=== PATIENT | female | born 1950 | race Caucasian/White ===

== ENCOUNTER 2018-04-25 14:24 | Outpatient (CLI) | payer BC ==
[~2018-04-25 14:24] MED LIST: Gadobenate Dimeglumine 529 MG/1 ML (20ML VIAL) ONE
--- NOTE | 2018-04-25 17:33 | MRI ---
PRE AND POSTCONTRAST ENHANCED MRI IMAGES OF BRAIN 04/25/18 Comparison made to a previous MRI from the cervical spine from 03/21/18. Multiplanar and multisequence pre and post contrast enhanced MRI images of the brain demonstrate a 12 .8 x 16.7 x 22.6 mm area of dural based enhancement just to the posterior left aspect of the atlanto- occipital junction. This dural based lesion is most compatible with a hemangioma. It compresses the u pper cervical cord anteriorly and toward the right effacing the posterior aspect. The lesion abuts th e left vertebral artery where it enters the subarachnoid space. No evidence of intracranial masses or lesions seen otherwise. No evidence of hydrocephalus seen. No o bvious evidence of spinal cord ischemia is seen. No evidence of upper cord edema seen. No other significant intracranial lesions or abnormalities noted. Normal flow voids seen in the major intracranial vessels. IMPRESSION: Left cervico-occipital junction dural based enhancing lesion most compatible with a hemangioma. This lesion compresses the spinal cord as well as the left vertebral artery. POS: [facility]
== END 2018-04-25 14:25 | disposition home or self-care (01) ==
LOC: SCSMRI 14:24
PROVIDERS: ATTEND Neurological Surgery
DX: D49.6 Neoplasm of unspecified behavior of brain (principal); G93.9 Disorder of brain, unspecified
CPT/HCPCS: 70553; 82565

== ENCOUNTER 2018-05-12 08:50 | Outpatient (CLI) | payer BC | END 2018-05-12 08:51 | disposition home or self-care (01) | LOC: BICMAMMO 08:50 | PROVIDERS: ATTEND Family Medicine | DX: Z12.31 Encounter for screening mammogram for malignant neoplasm of breast (principal); R92.1 Mammographic calcification found on diagnostic imaging of breast | CPT/HCPCS: 77063; 77067 ==

== ENCOUNTER 2018-05-21 13:21 | Outpatient (CLI) | payer BC | END 2018-05-21 13:22 | disposition home or self-care (01) | LOC: BICMAMMO 13:21 | PROVIDERS: ATTEND Family Medicine | DX: R92.1 Mammographic calcification found on diagnostic imaging of breast (principal) | CPT/HCPCS: G0279 ==

== ENCOUNTER → 2018-06-10 | Day surgery (SDC) | payer BC ==
--- NOTE | 2018-06-10 10:56 | OP ---
DATE OF PROCEDURE: 06/10/2018 PREOPERATIVE DIAGNOSIS: Right breast microcalcifications. POSTOPERATIVE DIAGNOSIS: Right breast microcalcifications. OPERATION PERFORMED: Right breast stereotactic biopsy with clip placement. SURGEON: Sumit Solis M.D. RADIOLOGIST: Dr. Maranda Echevarria ANESTHESIA: 1% lidocaine with epinephrine (buffered). INDICATIONS: The patient is a 67-year-old white female. Recent mammography revealed a small cluster of microcalcifications in the outer right breast. She is taken to the stereotactic imaging suite fo r sterotactic biopsy at this time. DESCRIPTION OF PROCEDURE: Informed consent was obtained. The patient was placed in the prone positi on on the stereotactic imaging table. Right breast was placed into a compression and imaged with [facility] mography. The calcifications were localized per Dr. Echevarria. The appropriate area of the breast was p repped with Betadine and locally anesthetized with 1% lidocaine with epinephrine. A small incision w as created and needle was advanced into the breast. Pre- and post fire images were obtained. The ne edle was found to be in appropriate location. A series of 6 circumferential suction assisted biopsie s were obtained using the biopsy system. The specimen were imaged and found to contain microcalcific ations. A marking clip was advanced into the breast and deployed in the usual fashion. This was fou nd to be present outside of the needle at appropriate location. The needle was withdrawn. Pressure was held on the breast. The incision was closed with Steri-Strips. Post-procedure mammogram was obt ained after the procedure. There was no discomfort and no blood loss during the procedure. She will follow up in my office in 3 days to discuss pathology and check incision.
--- NOTE | 2018-06-10 13:40 | MMO ---
RIGHT BREAST STEREOTACTIC BIOPSY: History: Right breast calcification. Comparison: None. FINDINGS: Imaging guidance was provided for Dr. Solis who performed the stereotactic biopsy. Refer to his kim elliott report for further detail. The calcifications were identified in the right breast. Post procedu re images demonstrate the biopsy clip to be present. [employer] radiograph demonstrates calcifications. IMPRESSION: Imaging guidance for right breast stereotactic biopsy was performed. POS: [facility]
--- NOTE | 2018-06-10 18:05 | MMO ---
2 VIEWS RIGHT BREAST: Date: 06/10/18 HISTORY: Status post right stereotactic biopsy. FINDINGS: Expected postoperative changes in the upper outer quadrant of the right breast. There is an associate d biopsy clip. On the CC projection, tip is appropriately located. On the MLO projection, the clip is slightly inferior in location. IMPRESSION: Status post right breast stereotactic biopsy. POS: [facility]
--- NOTE | 2018-06-10 18:05 | MMO ---
SPECIMEN RADIOGRAPH: 06/10/18 Calcifications are present. IMPRESSION: Calcifications are present in the specimen radiograph. POS: [facility]
== END ==
LOC: MAMMO 06:41
PROVIDERS: ATTEND Specialist
PROC: 0HBT3ZX Excision of Right Breast, Percutaneous Approach, Diagnostic (ICD-10-PCS; principal; 2018-06-10)
DX: N60.11 Diffuse cystic mastopathy of right breast (principal); R92.0 Mammographic microcalcification found on diagnostic imaging of breast; I10 Essential (primary) hypertension; E03.9 Hypothyroidism, unspecified; Z79.52 Long term (current) use of systemic steroids; Z79.899 Other long term (current) drug therapy
CPT/HCPCS: 19081; 76098; 88305

== ENCOUNTER 2019-05-13 09:47 | Outpatient (CLI) | payer MEDICARE, BC ==
--- NOTE | 2019-05-13 10:43 | MMO ---
Bilateral MAMMO Bilat Screen [facility]. CLINICAL HISTORY: Patient is 68 years old and is seen for screening. The patient has no family history of breast cancer. The patient has no personal history of cancer. The patient has a history of right Stereotatic Biopsy in May, - benign and left needle biopsy in 2001 - benign. VIEWS: The views performed were: bilateral craniocaudal with tomosynthesis and bilateral mediolateral oblique with tomosynthesis. FILMS COMPARED: The present examination has been compared to prior imaging studies performed at [facility] on 05/12/2018 and 05/21/2018, and at Outside Location on 05/08/2016 and 05/09/2017. MAMMOGRAM FINDINGS: There are scattered fibroglandular densities. Finding 1: There are stable benign appearing calcifications seen in both breasts. Finding 2: There are stable focal asymmetries with obscured margins seen in both breasts. Finding 3: There are stable biopsy clips seen in both breasts. There are no suspicious masses, suspicious calcifications, or new areas of architectural distortion. IMPRESSION: THERE IS NO MAMMOGRAPHIC EVIDENCE OF MALIGNANCY. A ROUTINE FOLLOW-UP MAMMOGRAM IN 1 YEAR IS RECOMMENDED. THE RESULTS OF THIS EXAM WERE SENT TO THE PATIENT. ACR BI-RADS Category 2 - Benign finding MAMMOGRAPHY NOTE: 1. A negative mammogram report should not delay a biopsy if a dominant of clinically suspicious mass is present. 2. Approximately 10% to 15% of breast cancers are not detected by mammography. 3. Adenosis and dense breasts may obscure an underlying neoplasm.
== END 2019-05-13 09:48 | disposition home or self-care (01) ==
LOC: BICMAMMO 09:47
PROVIDERS: ATTEND Family Medicine
DX: Z12.31 Encounter for screening mammogram for malignant neoplasm of breast (principal); Z91.89 Other specified personal risk factors, not elsewhere classified
CPT/HCPCS: 77063; 77067

== ENCOUNTER 2020-04-20 15:00 | Outpatient (CLI) | payer MEDICARE, BC | END 2020-04-20 15:01 | disposition home or self-care (01) | LOC: DTY/OP 15:00 | PROVIDERS: ATTEND Family Medicine | DX: I10 Essential (primary) hypertension (principal); E03.9 Hypothyroidism, unspecified; E11.65 Type 2 diabetes mellitus with hyperglycemia; E78.2 Mixed hyperlipidemia; F51.01 Primary insomnia | CPT/HCPCS: 97802 ==

== ENCOUNTER 2020-04-22 06:28 | Outpatient (CLI) | payer MEDICARE, BC, OTHER ==
[2020-04-22 11:06] LABS: #Eosinphils 0.1 thou/uL (0.0-0.7); #Monocytes 0.5 thou/uL (0.11-0.59); #Neutrophils 2.1 thou/uL (1.40-6.50); %Basophils 0.7 % (0.0-1.0); %Eosinophils 2.4 % (0.0-10.0); %Lymphocytes 26.8 % (21.0-51.0); %Monocytes 12.9 % (0.0-10.0); %Neutrophils 57.3 % (42.0-75.0); Hemoglobin 14.5 g/dL (12.0-16.0); Mean Corpuscular HGB CONC 33.9 g/dL (32.0-36.0); Mean Corpuscular Hemoglobin 32.1 pg (27.0-31.0); Mean Corpuscular Volume 94.7 fL (78.0-98.0); Mean Platelet Volume 9.2 fL (7.4-10.4); Platelet Count 216 thou/uL (130-400); RBC Distribution Width 12.5 % (11.5-14.5); Red Blood Cell (RBC) Count 4.51 mill/uL (4.20-5.40); White Blood Cell (WBC) Count 3.7 thou/uL (4.8-10.8)
[2020-04-22 11:53] LABS: Bacteria/HPF None Seen HPF (None Seen); Bilirubin Negative (Negative); Blood, Urine Negative (Negative); Clarity Clear (Clear); Glucose, Urine (Dipstick) Normal (Negative); Leukocyte Negative Leu/uL (Negative); Nitrite Negative (Negative); Protein, Urine (Dipstick) Negative (Neg-Trace); RBC/HPF 0-3 HPF (0-3); Squamous Epithelial None Seen HPF (0-3); Urobilinogen Normal mg/dL (Less than 2); WBC/HPF 0-3 HPF (0-3)
[2020-04-22 12:12] LABS: Anion Gap 16 mmol/L (10-20); BUN (Urea Nitrogen) 9 mg/dL (9.8-20.1); Calc. Creatinine Clearance 0 mL/min (70-130); Calcium 9.1 mg/dL (7.8-10.44); Carbon Dioxide 23 mmol/L (23-31); Chloride 103 mmol/L (98-107); Estimated GFR-MDRD 68; Glucose 156 mg/dL (80-115); Potassium 4.2 mmol/L (3.5-5.1); Sodium 138 mmol/L (136-145)
[2020-04-23 12:14] LABS: SARS-CoV-2 MS2 Positive; SARS-CoV-2 N Gene Negative; SARS-CoV-2 S Gene Negative; SARS-CoV-2 orf1ab Negative
--- NOTE | 2020-04-25 11:43 | EKG ---
Test Reason : Blood Pressure : / mmHG Vent. Rate : 066 BPM Atrial Rate : 066 BPM P-R Int : 166 ms QRS Dur : 088 ms QT Int : 402 ms P-R-T Axes : 073 073 057 degrees QTc Int : 421 ms Normal sinus rhythm Normal ECG Confirmed by DANYA RAYMOND ([id number]) on 04/25/2020 11:43:45 AM Referred By: KASHMIR Confirmed By:DANYA RAYMOND
== END 2020-04-22 06:29 | disposition home or self-care (01) ==
LOC: LABBT 06:28
PROVIDERS: ATTEND Orthopaedic Surgery Hand Surgery
DX: Z01.818 Encounter for other preprocedural examination (principal); Z11.59 Encounter for screening for other viral diseases; M18.12 Unilateral primary osteoarthritis of first carpometacarpal joint, left hand
CPT/HCPCS: 80048; 81001; 85025; 87081; 93005; U0003; 87635; 93010

== ENCOUNTER 2020-04-26 06:08 | Day surgery (SDC) | payer MEDICARE, BC ==
[2020-04-21 09:57] VITALS: BMI 30.4
[2020-04-26] MEDS ORDERED: Midazolam HCl 2 mg/2 ml Vial ONE ×2 (07:49→08:34)
[2020-04-26] MEDS ORDERED: Fentanyl 100 MCG/2 ML VIAL ONE ×2 (07:49→08:34)
[2020-04-26] MEDS ORDERED: Bacitracin Zinc Ointment 30 gm TUBE ONE (08:33)
[2020-04-26] MEDS ORDERED: Bupivacaine PF 0.5% 30 ML VIAL ONE (08:33)
[2020-04-26] MEDS ORDERED: EPHEDRINE 25 MG/5 ML SYRINGE ONE (11:46)
[2020-04-26] MEDS ORDERED: Bupivacaine HCl 0.5%/Epinephrine 1:200,000/PF 30 ml Vial ONE (11:46)
[2020-04-26] MEDS ORDERED: Dexamethasone 20 MG/5 ML VIAL ONE (11:46)
[2020-04-26] MEDS ORDERED: PROPOFOL 200 MG/20 ML VIAL ONE (11:46)
[2020-04-26] MEDS ORDERED: Ketorolac Tromethamine 30 MG/ML VIAL ONE (12:40)
--- NOTE | 2020-04-26 13:54 | RAD ---
Radiograph left wrist 3 views: DATE: 04/26/2020 HISTORY: 69-year-old female with left thumb pain FINDINGS: A total of 5 small [id number] fluoroscopic spot images obtained with C-arm in the OR. Ongoing K wire placement across first MCP joint. Trapezium is visualized in some of the images, but n ot in one of the images where there are tissue retractors nearby. Transversely oriented pin across bases of first and second metacarpals. IMPRESSION: 1.) Resection of trapezium 2) arthrodesis pin across first metacarpophalangeal joint. 3) pin placement across bases of first and second metacarpals.
--- NOTE | 2020-04-28 13:17 | OP ---
DATE OF PROCEDURE: 04/26/2020 PREOPERATIVE DIAGNOSES: 1. Left thumb carpometacarpal joint osteoarthritis. 2. Left thumb metacarpophalangeal volar capsule laxity. POSTOPERATIVE DIAGNOSES: 1. Left thumb carpometacarpal joint osteoarthritis. 2. Left thumb metacarpophalangeal volar capsule laxity with very lax volar capsule. 3. Three osteophytes and ossicles almost 4 mm each that were around the base of the thumb and trapezium, intact FCR throughout. PROCEDURES PERFORMED: 1. Flexor carpi radialis transfer tendon. 2. Left thumb carpometacarpal joint ligament placement tendon position. 3. Complete trapeziectomy, left thumb. 4. Left thumb metacarpophalangeal joint capsulodesis with pinning. 5. C-arm supervision multiple times and sites. 6. Short-arm cast application. 7. Removal of trapezium. TOTAL TOURNIQUET TIME: 121 minutes under block applied by Anesthesia indwelling for postoperative prolonged pain relief. ESTIMATED BLOOD LOSS: 20 mL. INDICATIONS: The patient with markedly degenerated, subluxed, sclerotic stage IV carpometacarpal joint osteoarthritis with over a 55- to 60-degree hyperextension deformity of the metacarpophalangeal joint that must be corrected as well. DESCRIPTION OF PROCEDURE: After successful anesthesia listed above, the limb was prepped and draped. We outlined a zigzag incision approximately 2.5 cm centered on the metacarpophalangeal joint in the volar aspect of the thumb as well as a J-shaped incision centered over the carpometacarpal joint and two 2 cm incisions over the flexor carpi radialis, each one-third of the way between the scaphoid and the flexor carpi radialis musculotendinous origin. The patient then had the metacarpophalangeal joint incision entered, we dissected down to visualize the radial and ulnar nerve branches, saw the A1 pablito and released it. We then retracted the tendon and the radial branch radially and the ulnar branch ulnarly. We made a V-shaped incision in the surface of the volar capsule which was markedly thinned, especially proximally. It was enough to suture the repair. We then began 4 sutures with double-armed Prolene 4-0 [id number], put them in place, brought the C-arm to the field and then placed a K-wire appropriately in the joint in frontal-sagittal plane at 30 degrees of flexion. We then tied the sutures with appropriate tension, cut them, and we had performed the capsulodesis. We closed the incision with interrupted 4-0 nylon in a simple pattern. We then were able to now approach the CMC joint. The J-shaped incision was entered. We dissected down, protecting the radial nerve branches and retracted them appropriately. We then saw the junction of the thenar muscles and the fascia, and leaving approximately 3 mm rim of fascia, we released down to the point where we were just past the tendinous insertions. Between the abductor and the extensor tendon, we entered the capsule. We tagged the capsule with a heavy 2-0 Prolene for later closure including a portion that had attachment with the thenar muscle fascia. We then placed a K-wire into the trapezium, threaded 0.062 approximately two-thirds depth and then subfrontal sagittal plane confirmed we had not placed it in the trapezoid as well. We then dissected 360 degrees around the trapezium to protect the radial artery radially and then visualized the flexor carpi radialis, moving it from the capsule gently scaphotrapezium articulation, released the capsule, and then elevated the trapezium out doing a total trapeziectomy. There were four ossicles and three large osteophytes around this joint on both sides, which had to be removed. We then freed the posterior capsule, and posteriorly and ulnarly, we placed a very heavy 3-0 Prolene in the capsule just at the flexor carpi radialis insertion on the index finger. We now rotated the thumb until the nailbed was parallel to the palm, and from here, we visualized in the sagittal plane the center above the thumb metacarpal 1.5 cm proximal to the articular surface and then passed a guidewire for a 2.7 drill bit at the junction of the chondral and metaphyseal bone as far as height and then in the center of the metaphysis of the metacarpal on both sides of the drill. We then slowly 3.5 mm. We irrigated and now proceeded to find the harvested flexor carpi radialis tendon. Both incisions were entered, first the most distal one, identified the tendon, freed it distally and proximally and then used a Crile to pull and help identify the musculotendinous junction. Once we found this, we elevated the muscle off the tendon, released it, brought into the first harvested incision and removed all the muscle. We then placed a running 4-0 Vicryl undyed on this tendon, so it could be passed through the hole. We brought it into the wrist, and passed it through the hole in the metacarpal base. At this point, we then pinned the metacarpal base using a K-wire approximately 5 mm distal to the lateral edge of the opening where the tendon had been passed from the metacarpal of the thumb into the metacarpal index finger appropriate height and then appropriate widening of the first webspace and adjacent base of the first and second metacarpals. We then passed the tendon underneath the abductor, sutured it to the wall of the metacarpal x2 into the abductor x2 with 4-0 Prolene. We then sutured it to the very deep capsule, placing it under the center of the base of the thumb metacarpal. We used the Irving needles and the heavy 3-0 Prolenes to create the anchovy effect and then sutured this deep into the recess created by the trapeziectomy. We released the tourniquet, and we obtained hemostasis. We closed the previous intact capsule back to itself, brought the remaining portion of the thenar fascia back to the rim we had connected and small portion to the abductor insertion. We then checked hemostasis again. It was adequate. We closed the epidermis with a running 4-0 Monocryl and the dermis with 4-0 nylon interrupted fashion in the primary J-shaped hockey incision on the thumb CMC. We used the same suture pattern to close the skin in the forearm for the harvest sites. We then had a bulky dressing applied with the patient having excellent circulation, capillary refill of 1 second, a thumb spica splint was applied on top with only the tip of the thumb visible. The patient left the operating room without evidence of anesthetic or operative complication. Job ID: [id number]
== END 2020-04-26 15:20 | disposition home or self-care (01) ==
LOC: SDC 06:08
PROVIDERS: ATTEND Orthopaedic Surgery Hand Surgery
PROC: 0RGV04Z Fusion of Left Metacarpophalangeal Joint with Internal Fixation Device, Open Approach (ICD-10-PCS; principal; 2020-04-26)
PROC: 0LX80ZZ Transfer Left Hand Tendon, Open Approach (ICD-10-PCS; 2020-04-26)
PROC: 0LU807Z Supplement Left Hand Tendon with Autologous Tissue Substitute, Open Approach (ICD-10-PCS; 2020-04-26)
PROC: 0RQT0ZZ Repair Left Carpometacarpal Joint, Open Approach (ICD-10-PCS; 2020-04-26)
PROC: 3E0T3BZ Introduction of Anesthetic Agent into Peripheral Nerves and Plexi, Percutaneous Approach (ICD-10-PCS; 2020-04-26)
DX: M18.0 Bilateral primary osteoarthritis of first carpometacarpal joints (principal); M25.242 Flail joint, left hand; G89.18 Other acute postprocedural pain; G56.03 Carpal tunnel syndrome, bilateral upper limbs; M65.331 Trigger finger, right middle finger; M65.332 Trigger finger, left middle finger; E03.9 Hypothyroidism, unspecified; I10 Essential (primary) hypertension; J30.2 Other seasonal allergic rhinitis; L71.9 Rosacea, unspecified; Z79.51 Long term (current) use of inhaled steroids; Z79.84 Long term (current) use of oral hypoglycemic drugs; Z79.899 Other long term (current) drug therapy; Z88.1 Allergy status to other antibiotic agents; Z91.013 Allergy to seafood; Z96.652 Presence of left artificial knee joint; Z98.890 Other specified postprocedural states
CPT/HCPCS: 76000; J0670; J0690; J1100; J1885; J2250; J2704; J3010; S0020

== ENCOUNTER 2020-05-16 08:35 | Outpatient (CLI) | payer MEDICARE, BC ==
--- NOTE | 2020-05-16 09:56 | MMO ---
Bilateral MAMMO Bilat Screen [facility]. CLINICAL HISTORY: Patient is 69 years old and is seen for screening. The patient has no family history of breast cancer. The patient has no personal history of cancer. The patient has a history of right Stereotatic Biopsy in May, - benign and left needle biopsy in 2001 - benign. VIEWS: The views performed were: bilateral craniocaudal with tomosynthesis and bilateral mediolateral oblique with tomosynthesis. FILMS COMPARED: The present examination has been compared to prior imaging studies performed at [facility] on 05/12/2018, 05/21/2018 and 05/13/2019, and at Outside Location on 05/09/2017. This study has been interpreted with the assistance of computer-aided detection. MAMMOGRAM FINDINGS: There are scattered fibroglandular densities. Finding 1: There are stable benign appearing calcifications seen in both breasts. Finding 2: There is a stable focal asymmetry seen in the right breast. Finding 3: There is a stable biopsy clip seen in the right breast. There are no suspicious masses, suspicious calcifications, or new areas of architectural distortion. IMPRESSION: THERE IS NO MAMMOGRAPHIC EVIDENCE OF MALIGNANCY. A ROUTINE FOLLOW-UP MAMMOGRAM IN 1 YEAR IS RECOMMENDED. THE RESULTS OF THIS EXAM WERE SENT TO THE PATIENT. ACR BI-RADS Category 2 - Benign finding MAMMOGRAPHY NOTE: 1. A negative mammogram report should not delay a biopsy if a dominant of clinically suspicious mass is present. 2. Approximately 10% to 15% of breast cancers are not detected by mammography. 3. Adenosis and dense breasts may obscure an underlying neoplasm. Reported by: ELAYNE SMALLS MD Electonically Signed: [id number]
--- NOTE | 2020-05-16 11:10 | BD ---
BONE DENSITOMETRY USING DEXA: Date: 05/16/2020 HISTORY: Postmenopausal screening for osteoporosis. FINDINGS: Lumbar Spine: BMD (g/cm2) L1 0.956 T-Score: -0.3 Z-Score: 1.4 L2 1.138 T-Score: 1.0 Z-Score: 2.9 L3 1.455 T-Score: 3.4 Z-Score: 5.4 L4 1.298 T-Score: -2.2 Z-Score: 4.2 L1-L4 1.209 T-Score: 1.5 Z-Score: 3.4 Femoral Neck: 0.744 T-Score: -0.9 Z-Score: 0.7 Total Femur: 0.997 T-Score: 0.5 Z-Score: 1.8 There is an interval reduction of 3.8% in the bone mineral density of the lumbar spine and an improve ment of 1.7% in the bone mineral density of the proximal femurs since 06/03/2017. IMPRESSION: Normal bone mineral density. POS: [facility]
== END 2020-05-16 08:36 | disposition home or self-care (01) ==
LOC: BICMAMMO 08:35
PROVIDERS: ATTEND Family Medicine
DX: Z12.31 Encounter for screening mammogram for malignant neoplasm of breast (principal); Z13.820 Encounter for screening for osteoporosis; Z91.89 Other specified personal risk factors, not elsewhere classified
CPT/HCPCS: 77063; 77067; 77080

== ENCOUNTER 2021-05-19 08:45 | Outpatient (CLI) | payer MEDICARE, BC | END 2021-05-19 08:46 | disposition home or self-care (01) | LOC: BICMAMMO 08:45 | PROVIDERS: ATTEND Family Medicine | DX: Z12.31 Encounter for screening mammogram for malignant neoplasm of breast (principal); Z13.820 Encounter for screening for osteoporosis; Z78.0 Asymptomatic menopausal state | CPT/HCPCS: 77063; 77067; 77080 ==

== ENCOUNTER 2021-09-21 08:47 | Outpatient (CLI) | payer MEDICARE, BC ==
[2021-09-21 10:50] LABS: Prothrombin Time 10.9 sec (9.5-12.1)
[2021-09-21 17:21] LABS: SARS-CoV-2 PCR by NAA Not Detected (NotDetected)
== END 2021-09-21 08:48 | disposition home or self-care (01) ==
LOC: LABBT 08:47
PROVIDERS: ATTEND Orthopaedic Surgery
DX: Z01.812 Encounter for preprocedural laboratory examination (principal); M17.11 Unilateral primary osteoarthritis, right knee; Z20.822 Contact with and (suspected) exposure to COVID-19
CPT/HCPCS: 85610; 87081; U0003; U0005

== ENCOUNTER 2021-09-21 09:00 | Inpatient (IN) | payer MEDICARE, BC ==
[2021-09-25 12:20] VITALS: BMI 28.5
[2021-09-26] MEDS ORDERED: Tranexamic Acid 1,000 MG/10 ML VIAL ONE ×2 (06:07→09:25)
[2021-09-26] MEDS ORDERED: ceFAZolin Sodium (SDC) 2 GM/100 ML BAG ONE (06:07)
[2021-09-26] MEDS ORDERED: Sodium Chloride 0.9% 100 ML ONE (06:08)
[2021-09-26] MEDS ORDERED: Vancomycin 1.5 GRAM/300 ML BAG 1.5 GM in Premix Bag 1 BAG IVPB SCH (06:15)
[2021-09-26] MEDS ORDERED: Fentanyl 100 MCG/2 ML VIAL ONE ×2 (06:42→09:33)
[2021-09-26] MEDS ORDERED: Midazolam HCl 2 mg/2 ml Vial ONE (06:42)
[2021-09-26] MEDS ORDERED: Bupivacaine 0.25% HCL 30 ML VIAL ONE ×2 (06:52→07:59)
[2021-09-26] MEDS ORDERED: EPINEPHrine 1 MG/ML AMP ONE (06:52)
[2021-09-26] MEDS ORDERED: Ondansetron PF 4 MG/2 ML Vial ONE (07:08)
[2021-09-26] MEDS ORDERED: Bupivacaine HCl 0.5%/Epinephrine 1:200,000/PF 30 ml Vial ONE (07:08)
[2021-09-26] MEDS ORDERED: PROPOFOL 200 MG/20 ML VIAL ONE (07:08)
[2021-09-26] MEDS ORDERED: Lidocaine 1% PF 5 ML VIAL ONE (07:08)
[2021-09-26] MEDS ORDERED: ePHEDrine 50 MG/ML VIAL ONE (07:08)
[2021-09-26] MEDS ORDERED: Fentanyl 100 MCG/2 ML VIAL SLOW IVP PRN ×3 (07:27→09:50)
[2021-09-26] MEDS ORDERED: Zolpidem Tartrate 5 MG TAB PO PRN ×3 (07:30→12:00)
[2021-09-26] MEDS ORDERED: traMADol HCl 50 MG TAB PO PRN ×3 (07:30→09:50)
[2021-09-26] MEDS ORDERED: Promethazine HCl 25 MG/ML VIAL IM PRN ×3 (07:30→09:50)
[2021-09-26] MEDS ORDERED: HYDROcodone/Acetaminophen 10/325 mg Tablet PO PRN ×4 (07:30→09:50)
[2021-09-26] MEDS ORDERED: Ondansetron PF 4 MG/2 ML Vial IVP PRN ×2 (07:30→09:50)
[2021-09-26] MEDS ORDERED: Ropivacaine 0.2% 550 ML 550 ML NERVE BLCK SCH (07:30)
[2021-09-26] MEDS ORDERED: Multivitamin W/ Minerals 1 TAB PO SCH (09:00)
[2021-09-26] MEDS ORDERED: Promethazine HCl 25 MG/ML VIAL IVPB PRN (09:20)
[2021-09-26] MEDS ORDERED: Ondansetron HCl/PF 4 MG/2 ML Vial IVP PRN (09:20)
[2021-09-26] MEDS ORDERED: diphenhydrAMINE 25 MG CAP PO PRN (09:50)
[2021-09-26] MEDS ORDERED: Ketorolac Tromethamine 30 MG/ML VIAL IVP PRN (09:50)
[2021-09-26] MEDS ORDERED: Ketorolac Tromethamine 30 MG/ML VIAL ONE (09:52)
[2021-09-26] MEDS: Senokot S 8.6-50 MG TAB PO SCH ×2 (11:17→20:54)
[2021-09-26] MEDS: Aspirin 81 mg Enteric Coated Tablet PO SCH ×2 (11:17→20:55)
[2021-09-26] MEDS: Ferrous Gluconate 324 MG TAB PO SCH ×2 (11:17→20:55)
[2021-09-26] MEDS: Ketorolac Tromethamine 30 MG/ML VIAL IVP SCH ×2 (11:29→18:02)
[2021-09-26] MEDS: Sodium Chloride 0.9% 1,000 ML IV SCH (11:30)
[2021-09-26] MEDS ORDERED: Albuterol Sulfate 2.5 mg/3 ml Neb NEB PRN (11:55)
[2021-09-26] MEDS ORDERED: Loratadine 10 MG TAB PO PRN (11:59)
[2021-09-26] MEDS ORDERED: PAZEO EA EYE PRN (12:09)
[2021-09-26] MEDS ORDERED: Polyethylene Glycol OPTH DROP 15 ML BOT EA EYE PRN (12:13)
[2021-09-26] MEDS ORDERED: Dextrose 50% Abboject 50 ML SYRINGE SLOW IVP PRN (14:18)
[2021-09-26] MEDS ORDERED: Dextrose 5% in Water 1,000 ML IV PRN (14:18)
[2021-09-26] MEDS: CEFAZOLIN 2 GM in Sodium Chloride 0.9% 100 ML IVPB SCH ×2 (16:07→21:11)
[2021-09-26] MEDS: metFORMIN 500 MG TAB PO SCH (18:00)
[2021-09-26] MEDS ORDERED: Vancomycin HCl 1.5 GM in Sodium Chloride 0.9% 250 ML 300 ML IVPB SCH (18:00)
[2021-09-26] MEDS: Melatonin 3 MG TAB PO SCH (20:55)
[2021-09-27] MEDS: Ketorolac Tromethamine 30 MG/ML VIAL IVP SCH ×4 (00:52→17:01)
[2021-09-27] MEDS: Sodium Chloride 0.9% 1,000 ML IV SCH ×3 (05:42→17:02)
[2021-09-27] MEDS: Levothyroxine 150 MCG TAB PO SCH (06:12)
[2021-09-27 06:13] LABS: Hemoglobin 9.5 g/dL (12.0-16.0); Mean Corpuscular HGB CONC 33.9 g/dL (32.0-36.0); Mean Corpuscular Hemoglobin 31.9 pg (27.0-31.0); Mean Corpuscular Volume 94.2 fL (78.0-98.0); Platelet Count 192 thou/uL (130-400); RBC Distribution Width 12.5 % (11.5-14.5); Red Blood Cell (RBC) Count 2.97 mill/uL (4.20-5.40); White Blood Cell (WBC) Count 5.8 thou/uL (4.8-10.8)
[2021-09-27] MEDS ORDERED: Ferrous Sulfate 325 MG TAB PO SCH (08:00)
[2021-09-27] MEDS: Fish Oil 1,000 MG CAP PO SCH (08:30)
[2021-09-27] MEDS: Rosuvastatin 5 MG TAB PO SCH (08:30)
[2021-09-27] MEDS: Aspirin 81 mg Enteric Coated Tablet PO SCH ×2 (08:30→20:07)
[2021-09-27] MEDS: Triamterene/Hydrochlorothiazide 37.5 mg/25 mg Tablet PO SCH (08:30)
[2021-09-27] MEDS: Vit A,C & E/Lutein/Minerals Tablet PO SCH (08:31)
[2021-09-27] MEDS: metFORMIN 500 MG TAB PO SCH ×2 (08:32→16:59)
[2021-09-27] MEDS: Senokot S 8.6-50 MG TAB PO SCH ×2 (08:32→20:07)
[2021-09-27] MEDS: Venlafaxine XR 37.5 MG CAP PO SCH (08:33)
[2021-09-27] MEDS: Ferrous Gluconate 324 MG TAB PO SCH ×2 (08:33→20:08)
[2021-09-27] MEDS: Cholecalciferol 1,000 UNITS (25 MCG) TAB PO SCH (08:33)
[2021-09-27] MEDS: Lisinopril 20 MG TAB PO SCH (08:35)
[2021-09-27] MEDS: Acetaminophen 325 MG TAB PO PRN (08:52)
[2021-09-27] MEDS ORDERED: Fluticasone Propionate Nasal Spray 16 gm Bottle NASAL PRN (13:15)
[2021-09-27] MEDS ORDERED: Azelastine 137 MCG/Spray 30 ML NS PRN (13:18)
[2021-09-27] MEDS: Melatonin 3 MG TAB PO SCH (20:07)
[2021-09-28] MEDS: Ketorolac Tromethamine 30 MG/ML VIAL IVP SCH ×2 (00:41→06:26)
[2021-09-28] MEDS: Sodium Chloride 0.9% 1,000 ML IV SCH (01:17)
[2021-09-28 05:53] LABS: Hemoglobin 9.7 g/dL (12.0-16.0); Mean Corpuscular HGB CONC 32.7 g/dL (32.0-36.0); Mean Corpuscular Hemoglobin 30.7 pg (27.0-31.0); Mean Corpuscular Volume 93.9 fL (78.0-98.0); Mean Platelet Volume 7.8 fL (7.4-10.4); Platelet Count 200 thou/uL (130-400); RBC Distribution Width 12.7 % (11.5-14.5); Red Blood Cell (RBC) Count 3.16 mill/uL (4.20-5.40); White Blood Cell (WBC) Count 6.3 thou/uL (4.8-10.8)
[2021-09-28] MEDS: Levothyroxine 150 MCG TAB PO SCH (06:27)
[2021-09-28] MEDS: Rosuvastatin 5 MG TAB PO SCH (07:40)
[2021-09-28] MEDS: Senokot S 8.6-50 MG TAB PO SCH (07:44)
[2021-09-28] MEDS: Aspirin 81 mg Enteric Coated Tablet PO SCH (07:44)
[2021-09-28] MEDS: Fish Oil 1,000 MG CAP PO SCH (07:44)
[2021-09-28] MEDS: metFORMIN 500 MG TAB PO SCH (07:44)
[2021-09-28] MEDS: Vit A,C & E/Lutein/Minerals Tablet PO SCH (07:45)
[2021-09-28] MEDS: Triamterene/Hydrochlorothiazide 37.5 mg/25 mg Tablet PO SCH (07:46)
[2021-09-28] MEDS: Lisinopril 20 MG TAB PO SCH (07:47)
[2021-09-28] MEDS: Cholecalciferol 1,000 UNITS (25 MCG) TAB PO SCH (07:47)
[2021-09-28] MEDS: Ferrous Gluconate 324 MG TAB PO SCH (07:47)
[2021-09-28] MEDS: Acetaminophen 325 MG TAB PO PRN (08:35)
[2021-09-28] MEDS: Venlafaxine XR 37.5 MG CAP PO SCH (11:29)
[2021-09-28 11:58] VITALS: BP 120/79; TEMP 98.5
== END 2021-09-28 12:26 | disposition home or self-care (01) | DRG 470 ==
LOC: SURG A 09-26 05:33 → EDSTATUS 09-26 09:00 → SURG B 09-26 10:37
PROVIDERS: ADMIT Orthopaedic Surgery; ATTEND Orthopaedic Surgery
PROC: 0SRC0J9 Replacement of Right Knee Joint with Synthetic Substitute, Cemented, Open Approach (ICD-10-PCS; principal; 2021-09-26)
DX: M17.11 Unilateral primary osteoarthritis, right knee (principal); E11.9 Type 2 diabetes mellitus without complications; I10 Essential (primary) hypertension; E03.9 Hypothyroidism, unspecified; E05.00 Thyrotoxicosis with diffuse goiter without thyrotoxic crisis or storm; E78.5 Hyperlipidemia, unspecified; J45.909 Unspecified asthma, uncomplicated; Z85.850 Personal history of malignant neoplasm of thyroid; Z88.1 Allergy status to other antibiotic agents; Z91.013 Allergy to seafood; Z79.899 Other long term (current) drug therapy; Z90.710 Acquired absence of both cervix and uterus
CPT/HCPCS: 36415; 36416; 85027; A4306; C1713; C1776; J0171; J0690; J1885; J2250; J2405; J2704; J2795; J3010; J3370; J3490; J7050; S0020

== ENCOUNTER 2021-11-02 14:29 | Outpatient (CLI) | payer MEDICARE, BC ==
[2021-11-02 15:32] LABS: #Eosinphils 0.3 10x3/uL (0.0-0.5); #Monocytes 0.6 10x3/uL (0.0-1.1); #Neutrophils 2.7 10x3/uL (1.5-8.4); %Basophils 0.6 % (0.0-2.0); %Eosinophils 5.6 % (0.0-6.0); %Lymphocytes 24.3 % (18.0-47.0); %Monocytes 13.4 % (0.0-10.0); %Neutrophils 55.7 % (40.0-75.0); Hemoglobin 11.5 g/dL (12.0-15.5); Mean Corpuscular HGB CONC 31.9 g/dL (32.0-36.0); Mean Corpuscular Hemoglobin 28.9 pg (27.0-33.0); Mean Corpuscular Volume 90.5 fl (81.6-98.3); Mean Platelet Volume 10.6 fl (7.4-10.4); Platelet Count 298 10x3/uL (150-450); RBC Distribution Width 13.4 % (11.5-14.5); Red Blood Cell (RBC) Count 3.98 10x6/uL (3.90-5.03); White Blood Cell (WBC) Count 4.8 10x3/uL (3.5-10.5)
[2021-11-02 15:47] LABS: Anion Gap 14 mmol/L (10-20); BUN (Urea Nitrogen) 16 mg/dL (9.8-20.1); Calc. Creatinine Clearance 0 mL/min (70-130); Calcium 9.4 mg/dL (7.8-10.44); Carbon Dioxide 26 mmol/L (23-31); Glucose 99 mg/dL (80-115); Potassium 4.3 mmol/L (3.5-5.1); Sodium 137 mmol/L (136-145)
[2021-11-02 15:55] LABS: Chloride 101 mmol/L (98-107)
[2021-11-03 17:10] LABS: SARS-CoV-2 PCR by NAA Not Detected (NotDetected)
== END 2021-11-02 14:30 | disposition home or self-care (01) ==
LOC: LABBT 14:29
PROVIDERS: ATTEND Orthopaedic Surgery Hand Surgery
DX: Z01.812 Encounter for preprocedural laboratory examination (principal); M65.332 Trigger finger, left middle finger; M65.331 Trigger finger, right middle finger; Z20.822 Contact with and (suspected) exposure to COVID-19
CPT/HCPCS: 80048; 85025; U0003; U0005

== ENCOUNTER 2021-11-07 05:31 | Day surgery (SDC) | payer MEDICARE, BC ==
[2021-11-01 13:01] VITALS: BMI 27.3
[2021-11-07] MEDS ORDERED: Neomycin-Polymyxin 1 ML AMP ONE (06:23)
[2021-11-07] MEDS ORDERED: Bupivacaine PF 0.5% 30 ML VIAL ONE (06:23)
[2021-11-07] MEDS ORDERED: Betamet Acet/Betamet Na Ph 30 MG/5 ML VIAL ONE (06:23)
[2021-11-07] MEDS ORDERED: Bacitracin Zinc Ointment 30 gm TUBE ONE (06:23)
[2021-11-07] MEDS ORDERED: ceFAZolin 2 GM/DEX 5% 100 ML BAG ONE (06:25)
[2021-11-07] MEDS ORDERED: Fentanyl 100 MCG/2 ML VIAL ONE (06:46)
[2021-11-07] MEDS ORDERED: Midazolam HCl 2 mg/2 ml Vial ONE (07:15)
[2021-11-07] MEDS ORDERED: ePHEDrine 50 MG/ML VIAL ONE (07:18)
[2021-11-07] MEDS ORDERED: Dexamethasone 20 MG/5 ML VIAL ONE (07:18)
[2021-11-07] MEDS ORDERED: Ketorolac Tromethamine 30 MG/ML VIAL ONE (07:18)
[2021-11-07] MEDS ORDERED: PROPOFOL 200 MG/20 ML VIAL ONE (07:18)
[2021-11-07] MEDS ORDERED: Lidocaine 1% PF 5 ML VIAL ONE (07:18)
[2021-11-07] MEDS ORDERED: Ondansetron PF 4 MG/2 ML Vial ONE (07:18)
== END 2021-11-07 09:38 | disposition home or self-care (01) ==
LOC: SDC 05:31
PROVIDERS: ATTEND Orthopaedic Surgery Hand Surgery
PROC: 0LN80ZZ Release Left Hand Tendon, Open Approach (ICD-10-PCS; principal; 2021-11-07)
PROC: 0LN70ZZ Release Right Hand Tendon, Open Approach (ICD-10-PCS; 2021-11-07)
DX: M65.331 Trigger finger, right middle finger (principal); M65.332 Trigger finger, left middle finger; M65.841 Other synovitis and tenosynovitis, right hand; M65.842 Other synovitis and tenosynovitis, left hand; Z79.84 Long term (current) use of oral hypoglycemic drugs; Z79.899 Other long term (current) drug therapy; Z88.1 Allergy status to other antibiotic agents; Z91.013 Allergy to seafood; Z96.651 Presence of right artificial knee joint
CPT/HCPCS: J0702; J1100; J1885; J2250; J2405; J2704; J3010; J3490; S0020

== ENCOUNTER 2022-02-22 13:28 | Day surgery (SDC) | payer MEDICARE, BC ==
[2022-02-19 10:06] VITALS: BMI 27.3
[2022-02-22] MEDS ORDERED: AFRIN NASAL MIST 15 ML BOT ONE ×2 (14:14→17:54)
[2022-02-22] MEDS ORDERED: Fentanyl 100 MCG/2 ML VIAL ONE (16:52)
[2022-02-22] MEDS ORDERED: Bacitracin Zinc Ointment 30 gm TUBE ONE (17:54)
[2022-02-22] MEDS ORDERED: EPINEPHrine 1 MG/ML AMP ONE (17:54)
[2022-02-22] MEDS ORDERED: Lidocaine 1% w/Epinephrine 1:100K 20 ML VIAL ONE (17:54)
[2022-02-22] MEDS ORDERED: methylPREDNISolone Acetate 40 mg/ml Vial ONE (17:59)
[2022-02-22] MEDS ORDERED: Dexamethasone 20 MG/5 ML VIAL ONE (18:09)
[2022-02-22] MEDS ORDERED: Glycopyrrolate 0.2 MG/ML 5 ML SYRINGE ONE (18:09)
[2022-02-22] MEDS ORDERED: PROPOFOL 200 MG/20 ML VIAL ONE (18:09)
[2022-02-22] MEDS ORDERED: Ondansetron PF 4 MG/2 ML Vial ONE (18:09)
[2022-02-22] MEDS ORDERED: Rocuronium Bromide 10 MG/ML (10ML VIAL) ONE (18:09)
== END 2022-02-22 20:05 | disposition home or self-care (01) ==
LOC: SDC 13:28
PROVIDERS: ATTEND Specialist
PROC: 09SM0ZZ Reposition Nasal Septum, Open Approach (ICD-10-PCS; principal; 2022-02-22)
PROC: 09SL8ZZ Reposition Nasal Turbinate, Via Natural or Artificial Opening Endoscopic (ICD-10-PCS; 2022-02-22)
PROC: 09BR8ZZ Excision of Left Maxillary Sinus, Via Natural or Artificial Opening Endoscopic (ICD-10-PCS; 2022-02-22)
PROC: 095K8ZZ Destruction of Nasal Mucosa and Soft Tissue, Via Natural or Artificial Opening Endoscopic (ICD-10-PCS; 2022-02-22)
DX: J32.0 Chronic maxillary sinusitis (principal); J34.2 Deviated nasal septum; J34.3 Hypertrophy of nasal turbinates; J30.0 Vasomotor rhinitis; E78.00 Pure hypercholesterolemia, unspecified; I10 Essential (primary) hypertension; K21.9 Gastro-esophageal reflux disease without esophagitis; E11.9 Type 2 diabetes mellitus without complications; Z79.84 Long term (current) use of oral hypoglycemic drugs; Z79.890 Hormone replacement therapy; Z79.899 Other long term (current) drug therapy; Z88.1 Allergy status to other antibiotic agents; Z91.013 Allergy to seafood
CPT/HCPCS: 30130; 30520; 31267; C9771; J0171; J1100; J2405; J2704; J2920; J3010

== ENCOUNTER 2022-05-28 13:17 | Outpatient (CLI) | payer MEDICARE, BC | END 2022-05-28 13:18 | disposition home or self-care (01) | LOC: BICMAMMO 13:17 | PROVIDERS: ATTEND Family Medicine | DX: Z12.31 Encounter for screening mammogram for malignant neoplasm of breast (principal) | CPT/HCPCS: 77063; 77067 ==

== ENCOUNTER 2022-09-28 16:53 | Emergency (ER) | payer MEDICARE, BC ==
[2022-09-28 17:57] LABS: #Eosinphils 0.2 thou/uL (0.0-0.7); #Lymphocytes 0.8 thou/uL (1.20-3.40); #Monocytes 0.7 thou/uL (0.11-0.59); %Lymphocytes 10.6 % (21.0-51.0); %Monocytes 9.1 % (0.0-10.0); %Neutrophils 78.3 % (42.0-75.0); Hemoglobin 11.9 g/dL (12.0-16.0); Mean Corpuscular HGB CONC 32.6 g/dL (32.0-36.0); Mean Corpuscular Volume 94.9 fl (78.0-98.0); Mean Platelet Volume 8.4 fL (7.4-10.4); Platelet Count 195 10x3/uL (130-400); RBC Distribution Width 12.8 % (11.5-14.5); Red Blood Cell (RBC) Count 3.83 mill/uL (4.20-5.40); White Blood Cell (WBC) Count 7.7 10x3/uL (4.8-10.8)
[2022-09-28 18:24] LABS: ALT (SGPT) 16 U/L (8-55); AST (SGOT) 17 U/L (5-34); Albumin 3.9 g/dL (3.4-4.8); Alkaline Phosphatase 71 U/L (40-110); Anion Gap 15 mmol/L (10-20); BUN (Urea Nitrogen) 17 mg/dL (9.8-20.1); Bilirubin, Total 0.3 mg/dL (0.2-1.2); Calc. Creatinine Clearance 0 mL/min (70-130); Calcium 8.6 mg/dL (7.8-10.44); Carbon Dioxide 23 mmol/L (23-31); Chloride 104 mmol/L (98-107); Estimated GFR 75; Glucose 154 mg/dL (80-115); Potassium 4.2 mmol/L (3.5-5.1); Protein, Total 5.9 g/dL (5.8-8.1); Sodium 138 mmol/L (136-145)
== END 2022-09-28 18:54 | disposition home or self-care (01) ==
LOC: ERS 16:53
DX: R55 Syncope and collapse (principal)
CPT/HCPCS: 36415; 71045; 80053; 84484; 85025; 93005

== ENCOUNTER 2022-10-12 12:28 | Outpatient (CLI) | payer MEDICARE, BC | END 2022-10-12 12:29 | disposition home or self-care (01) | LOC: SCSMRI 12:28 | PROVIDERS: ATTEND Neurological Surgery | DX: D32.9 Benign neoplasm of meninges, unspecified (principal); M54.2 Cervicalgia; M47.812 Spondylosis without myelopathy or radiculopathy, cervical region; Z98.890 Other specified postprocedural states | CPT/HCPCS: 70250; 70553; 72050; 72156 ==

== ENCOUNTER 2023-06-11 14:32 | Outpatient (CLI) | payer MEDICARE, BC | END 2023-06-11 14:33 | disposition home or self-care (01) | LOC: BICMAMMO 14:32 | PROVIDERS: ATTEND Family Medicine | DX: Z12.31 Encounter for screening mammogram for malignant neoplasm of breast (principal); M85.80 Other specified disorders of bone density and structure, unspecified site; Z91.89 Other specified personal risk factors, not elsewhere classified; Z78.0 Asymptomatic menopausal state | CPT/HCPCS: 77063; 77067; 77080 ==

== ENCOUNTER 2025-06-16 08:03 | Outpatient (CLI) | payer MEDICARE | END 2025-06-16 08:04 | disposition home or self-care (01) | LOC: BICMAMMO 08:03 | PROVIDERS: ATTEND Student in an Organized Health Care Education/Training Program | DX: Z12.31 Encounter for screening mammogram for malignant neoplasm of breast (principal); M85.851 Other specified disorders of bone density and structure, right thigh; M85.852 Other specified disorders of bone density and structure, left thigh; Z78.0 Asymptomatic menopausal state | CPT/HCPCS: 77063; 77067; 77080 ==

== ENCOUNTER 2025-09-10 10:23 | Outpatient (CLI) | payer MEDICARE ==
[2025-09-10 11:35] LABS: #Basophils Less than 0.03 10x3/uL (0.0-0.2); #Eosinophils 0.24 10x3/uL (0.0-0.7); #Monocytes 0.57 10x3/uL (0.11-0.59); #Neutrophils 3.20 10x3/uL (1.40-6.50); %Basophils 0.4 % (0.0-1.0); %Eosinophils 4.7 % (0.0-10.0); %Lymphocytes 20.6 % (21.0-51.0); %Monocytes 11.2 % (0.0-10.0); %Neutrophils 62.9 % (42.0-75.0); Hematocrit 39.8 % (36.0-47.0); Hemoglobin 13.1 g/dL (12.0-16.0); Mean Corpuscular Hemoglobin 29.0 pg (27.0-31.0); Mean Corpuscular Volume 88.2 fL (78.0-98.0); Platelet Count 222 10x3/uL (130-400); Red Blood Cell (RBC) Count 4.51 mill/uL (4.20-5.40); White Blood Cell (WBC) Count 5.09 10x3/uL (4.8-10.8)
[2025-09-10 11:56] LABS: Anion Gap 14 mmol/L (10-20); BUN (Urea Nitrogen) 29 mg/dL (9.8-20.1); Calc. Creatinine Clearance 0 mL/min (70-130); Calcium 9.5 mg/dL (7.8-10.44); Carbon Dioxide 25 mmol/L (23-31); Chloride 104 mmol/L (98-107); Glucose 132 mg/dL (83-110); Potassium 4.4 mmol/L (3.5-5.1); Sodium 139 mmol/L (136-145)
== END 2025-09-10 10:24 | disposition home or self-care (01) ==
LOC: LABBT 10:23
PROVIDERS: ATTEND Orthopaedic Surgery Hand Surgery
DX: Z01.818 Encounter for other preprocedural examination (principal); G56.01 Carpal tunnel syndrome, right upper limb; M67.40 Ganglion, unspecified site
CPT/HCPCS: 80048; 85025; 93005; 93010

== ENCOUNTER 2025-09-14 05:50 | Day surgery (SDC) | payer MEDICARE ==
[2025-09-10 10:35] VITALS: BMI 28.0
[2025-09-14] MEDS ORDERED: Bacitracin Zinc Ointment 30 gm TUBE ONE (06:43)
[2025-09-14] MEDS ORDERED: CEFAZOLIN 2 GM VIAL ONE (06:43)
[2025-09-14] MEDS ORDERED: Famotidine/PF 20 mg/2ml Vial ONE (06:58)
[2025-09-14] MEDS ORDERED: Ondansetron PF 4 MG/2 ML Vial ONE (07:33)
[2025-09-14] MEDS ORDERED: Ketorolac Tromethamine 30 MG (1 mL) VIAL ONE (07:33)
== END 2025-09-14 08:42 | disposition home or self-care (01) ==
LOC: SDC 05:50
PROVIDERS: ATTEND Orthopaedic Surgery Hand Surgery
PROC: 01N50ZZ Release Median Nerve, Open Approach (ICD-10-PCS; principal; 2025-09-14)
PROC: 0HBFXZZ Excision of Right Hand Skin, External Approach (ICD-10-PCS; 2025-09-14)
DX: G56.01 Carpal tunnel syndrome, right upper limb (principal); M67.40 Ganglion, unspecified site; I10 Essential (primary) hypertension; E11.9 Type 2 diabetes mellitus without complications; M18.11 Unilateral primary osteoarthritis of first carpometacarpal joint, right hand; M18.12 Unilateral primary osteoarthritis of first carpometacarpal joint, left hand; G56.02 Carpal tunnel syndrome, left upper limb; M25.839 Other specified joint disorders, unspecified wrist; M60.242 Foreign body granuloma of soft tissue, not elsewhere classified, left hand; Z88.2 Allergy status to sulfonamides; Z88.1 Allergy status to other antibiotic agents; Z91.013 Allergy to seafood; Z90.49 Acquired absence of other specified parts of digestive tract; Z90.710 Acquired absence of both cervix and uterus
CPT/HCPCS: 26160; 64721; A6223; J0665; J1308; J1885; J2250; J2405; J3010; 88304

== ENCOUNTER 2025-10-22 06:35 | Day surgery (SDC) | payer MEDICARE ==
[2025-10-21 10:42] VITALS: BMI 27.3
[2025-10-22 07:33] LABS: #Basophils 0.03 10x3/uL (0.0-0.2); #Eosinophils 0.29 10x3/uL (0.0-0.7); #Monocytes 0.72 10x3/uL (0.11-0.59); #Neutrophils 3.21 10x3/uL (1.40-6.50); %Basophils 0.6 % (0.0-1.0); %Eosinophils 5.4 % (0.0-10.0); %Lymphocytes 21.4 % (21.0-51.0); %Monocytes 13.3 % (0.0-10.0); %Neutrophils 59.1 % (42.0-75.0); Hematocrit 37.4 % (36.0-47.0); Hemoglobin 12.5 g/dL (12.0-16.0); Mean Corpuscular Hemoglobin 29.1 pg (27.0-31.0); Mean Corpuscular Volume 87.2 fL (78.0-98.0); Platelet Count 227 10x3/uL (130-400); Red Blood Cell (RBC) Count 4.29 mill/uL (4.20-5.40); White Blood Cell (WBC) Count 5.42 10x3/uL (4.8-10.8)
[2025-10-22] MEDS ORDERED: Lidocaine 1% PF 5 ML VIAL ONE (08:22)
[2025-10-22] MEDS ORDERED: PROPOFOL 200 MG/20 ML VIAL ONE (08:22)
[2025-10-22] MEDS ORDERED: Ondansetron PF 4 MG/2 ML Vial ONE (08:27)
== END 2025-10-22 11:20 | disposition home or self-care (01) ==
LOC: SDC 06:35
PROVIDERS: ATTEND Orthopaedic Surgery Hand Surgery
PROC: 01N50ZZ Release Median Nerve, Open Approach (ICD-10-PCS; principal; 2025-10-22)
DX: G56.02 Carpal tunnel syndrome, left upper limb (principal); M65.342 Trigger finger, left ring finger; M65.842 Other synovitis and tenosynovitis, left hand; M65.321 Trigger finger, right index finger; M18.12 Unilateral primary osteoarthritis of first carpometacarpal joint, left hand; M18.11 Unilateral primary osteoarthritis of first carpometacarpal joint, right hand; M67.40 Ganglion, unspecified site; I10 Essential (primary) hypertension; Z98.890 Other specified postprocedural states; Z88.8 Allergy status to other drugs, medicaments and biological substances; Z91.013 Allergy to seafood; Z90.710 Acquired absence of both cervix and uterus
CPT/HCPCS: 26055; 64721; 85025; A6223; J1100; J2405; J2704; J3010